=== PATIENT | male | born 1975 | race Caucasian/White ===

== ENCOUNTER 2017-01-08 10:19 | Emergency (ER) | payer SELFPAY ==
[~2017-01-08 10:19] MED LIST: Lactated Ringer's 1,000 ML BAG ONE; Nitroglycerin 0.4 MG TAB 1 EACH ONE
[2017-01-08] MEDS ORDERED: Nitroglycerin 0.4 MG TAB 1 EACH ONE ×2 (10:23→10:45)
[2017-01-08 10:47] LABS: #Basophils 0.1 thou/uL (0.0-0.2); #Eosinphils 0.2 thou/uL (0.0-0.7); #Lymphocytes 1.5 thou/uL (1.20-3.40); #Monocytes 0.6 thou/uL (0.11-0.59); #Neutrophils 11.1 thou/uL (1.40-6.50); %Basophils 0.6 % (0.0-1.0); %Eosinophils 1.3 % (0.0-10.0); %Monocytes 4.7 % (0.0-10.0); %Neutrophils 82.4 % (42.0-75.0); Hemoglobin 16.1 g/dL (14.0-18.0); Mean Corpuscular Hemoglobin 30.4 pg (27.0-31.0); Mean Corpuscular Volume 94.9 fl (80.0-94.0); Platelet Count 307 thou/uL (130-400); RBC Distribution Width 12.2 % (11.5-14.5); Red Blood Cell (RBC) Count 5.29 mill/uL (4.70-6.10); White Blood Cell (WBC) Count 13.4 thou/uL (4.8-10.8)
[2017-01-08 11:00] LABS: PTT 26.4 SEC (22.9-36.1); Prothrombin Time 13.2 SEC (12.0-14.7)
[2017-01-08 11:08] LABS: ALT (SGPT) 97 U/L (8-55); AST (SGOT) 39 U/L (5-34); Alkaline Phosphatase 64 U/L (40-150); Anion Gap 14 mmol/L (10-20); BUN (Urea Nitrogen) 16 mg/dL (8.9-20.6); Bilirubin, Total 0.9 mg/dL (0.2-1.2); Calc. Creatinine Clearance 0 mL/min (70-130); Carbon Dioxide 23 mmol/L (22-29); Chloride 103 mmol/L (98-107); Estimated GFR-MDRD 79; Globulin 3.7 g/dL (2.4-3.5); Glucose 116 mg/dL (70-105); Potassium 4.3 mmol/L (3.5-5.1); Protein, Total 7.7 g/dL (6.0-8.3); Sodium 136 mmol/L (136-145)
[2017-01-08 11:11] LABS: CKMB 3.6 ng/mL (0-6.6); Troponin I 0.017 ng/mL (< 0.028)
[2017-01-08 11:20] LABS: D-Dimer Test Less than 0.27 *mcg/mL (0.27-0.43)
--- NOTE | 2017-01-08 11:54 | RAD ---
PA AND LATERAL VIEWS OF CHEST: Date: 01/08/17 HISTORY: Chest pain. FINDINGS: Comparison made with exam of 03/30/14. The heart size is normal. The lungs are well expanded without focal areas of consolidation, pneumoth orax, or pleural effusions. IMPRESSION: No radiographic evidence of acute cardiopulmonary process. POS: [facility]
[2017-01-08 14:09] LABS: CKMB 3.1 ng/mL (0-6.6); Troponin I 0.015 ng/mL (< 0.028)
== END 2017-01-08 14:27 | disposition home or self-care (01) ==
LOC: MADERS 10:19
DX: R09.1 Pleurisy (principal); M62.838 Other muscle spasm; F32.9 Major depressive disorder, single episode, unspecified
CPT/HCPCS: 71020; 80053; 82553; 83880; 84484; 85025; 85379; 85610; 85730; 93005; 96360; J7120

== ENCOUNTER 2017-06-20 10:55 | Emergency (ER) | payer SELFPAY | END 2017-06-20 11:50 | disposition home or self-care (01) | LOC: MADERS 10:55 | DX: J11.1 Influenza due to unidentified influenza virus with other respiratory manifestations (principal); F32.9 Major depressive disorder, single episode, unspecified | CPT/HCPCS: 99283 ==

== ENCOUNTER 2018-03-28 18:22 | Emergency (ER) | payer SELFPAY ==
[2018-03-28] MEDS ORDERED: Ibuprofen 800 MG TAB ONE (19:29)
--- NOTE | 2018-03-28 19:46 | RAD ---
PA AND LATERAL VIEWS MOOK: HISTORY: Cough. COMPARISON: 01/08/2017 FINDINGS: The heart size is normal. The lungs are well expanded without focal areas of consolidation, pneumoth orax, or pleural effusions. No acute osseous abnormalities are seen. IMPRESSION: No radiographic evidence of acute cardiopulmonary process. POS: [facility]
== END 2018-03-28 21:00 | disposition home or self-care (01) ==
LOC: MADERS 18:22
DX: J20.9 Acute bronchitis, unspecified (principal); F32.9 Major depressive disorder, single episode, unspecified
CPT/HCPCS: 71046; 87804; J7620

== ENCOUNTER 2018-04-12 18:22 | Emergency (ER) | payer SELFPAY ==
[2018-04-12] MEDS ORDERED: predniSONE 20 MG TAB ONE (19:42)
--- NOTE | 2018-04-12 20:04 | RAD ---
PA AND LATERAL CHEST X-RAY: 04/12/18 HISTORY: Cough. COMPARISON: 03/28/18. FINDINGS: The cardiac silhouette and pulmonary vasculature are within normal limits. The lungs are clear. There has been no interval change from prior exam. IMPRESSION: No acute cardiopulmonary process. POS: [facility]
== END 2018-04-12 19:45 | disposition home or self-care (01) ==
LOC: MADERS 18:22
DX: J20.9 Acute bronchitis, unspecified (principal); H66.91 Otitis media, unspecified, right ear; F32.9 Major depressive disorder, single episode, unspecified
CPT/HCPCS: 71046; J7506

== ENCOUNTER 2018-10-02 19:09 | Emergency (ER) | payer SELFPAY ==
[~2018-10-02 19:09] MED LIST changes: +Iopamidol 370 76% 100 ML VIAL ONE; -Lactated Ringer's 1,000 ML BAG ONE; -Nitroglycerin 0.4 MG TAB 1 EACH ONE
[2018-10-02] MEDS ORDERED: Sodium Chloride 0.9% 1,000 ML ONE (19:45)
[2018-10-02 19:47] LABS: #Basophils 0.1 thou/uL (0.0-0.2); #Eosinphils 0.1 thou/uL (0.0-0.7); #Lymphocytes 2.2 thou/uL (1.20-3.40); #Monocytes 0.6 thou/uL (0.11-0.59); #Neutrophils 4.6 thou/uL (1.40-6.50); %Basophils 1.2 % (0.0-1.0); %Eosinophils 1.7 % (0.0-10.0); %Lymphocytes 28.9 % (21.0-51.0); %Neutrophils 60.2 % (42.0-75.0); Hemoglobin 15.3 g/dL (14.0-18.0); Mean Corpuscular HGB CONC 31.8 g/dL (32.0-36.0); Mean Corpuscular Hemoglobin 29.4 pg (27.0-31.0); Mean Corpuscular Volume 92.5 fL (78.0-98.0); Mean Platelet Volume 6.5 fL (7.4-10.4); Platelet Count 271 thou/uL (130-400); Red Blood Cell (RBC) Count 5.22 mill/uL (4.70-6.10); White Blood Cell (WBC) Count 7.7 thou/uL (4.8-10.8)
[2018-10-02 19:55] LABS: INR-International Normal Ratio 0.9; PTT 26.4 SEC (22.9-36.1); Prothrombin Time 12.7 SEC (12.0-14.7)
--- NOTE | 2018-10-02 19:57 | CT ---
CT abdomen and pelvis with IV contrast HISTORY: Abdominal pain. COMPARISON: 10/04/2009. FINDINGS: Lung bases are clear. The liver, spleen, kidneys, adrenal glands, and pancreas have a kaleb l CT appearance. No free air or free fluid. Urinary bladder is incompletely distended. Lack of oral contrast limits evaluation of the bowel. No evidence of obstruction. Appendix is not inf lamed. IMPRESSION: No significant abnormalities are demonstrated.
[2018-10-02 20:05] LABS: ALT (SGPT) 55 U/L (8-55); AST (SGOT) 22 U/L (5-34); Alkaline Phosphatase 74 U/L (40-150); Anion Gap 14 mmol/L (10-20); BUN (Urea Nitrogen) 10 mg/dL (8.9-20.6); Bilirubin, Total 0.5 mg/dL (0.2-1.2); Calc. Creatinine Clearance 0 mL/min (70-130); Carbon Dioxide 26 mmol/L (22-29); Chloride 103 mmol/L (98-107); Estimated GFR-MDRD 84; Globulin 3.3 g/dL (2.4-3.5); Glucose 100 mg/dL (70-105); Lipase 26 U/L (8-78); Potassium 3.7 mmol/L (3.5-5.1); Protein, Total 7.3 g/dL (6.0-8.3); Sodium 139 mmol/L (136-145)
== END 2018-10-02 20:25 | disposition home or self-care (01) ==
LOC: MADERS 19:09
DX: R10.33 Periumbilical pain (principal); F32.9 Major depressive disorder, single episode, unspecified
CPT/HCPCS: 74177; 80053; 83690; 85025; 85610; 85730; J7050; Q9967

== ENCOUNTER 2018-10-09 20:14 | Emergency (ER) | payer SELFPAY ==
--- NOTE | 2018-10-09 20:58 | RAD ---
TWO VIEWS RIGHT HUMERUS 10/09/18 HISTORY: Right humeral pain. Two views right humerus demonstrates no evidence of right humeral fractures, subluxations or bone les ions. IMPRESSION: Normal two views right humerus. POS: [facility]
== END 2018-10-09 21:01 | disposition home or self-care (01) ==
LOC: MADERS 20:14
DX: S40.021A Contusion of right upper arm, initial encounter (principal); F32.9 Major depressive disorder, single episode, unspecified; X58.XXXA Exposure to other specified factors, initial encounter

== ENCOUNTER 2019-10-09 19:16 | Emergency (ER) | payer SELFPAY | END 2019-10-09 20:26 | disposition home or self-care (01) | LOC: MADERS 19:16 | DX: J06.9 Acute upper respiratory infection, unspecified (principal); J00 Acute nasopharyngitis [common cold]; F32.9 Major depressive disorder, single episode, unspecified | CPT/HCPCS: 99282 ==

== ENCOUNTER 2019-10-15 17:19 | Emergency (ER) | payer MEDICARE, OTHER ==
--- NOTE | 2019-10-15 18:23 | RAD ---
Exam: Chest one view HISTORY:Chest pain. Cough Comparison: 03/30/2014 FINDINGS: Cardiac silhouette: Normal Aorta: Unremarkable Pulmonary vessels: Normal Costophrenic angles: Clear LUNGS: No masses or consolidation. Pneumothorax: None Osseous abnormalities: None IMPRESSION: No acute cardiopulmonary process.
[2019-10-15] MEDS ORDERED: Azithromycin 250 MG TAB ONE (19:04)
[2019-10-16 17:54] LABS: SARS-CoV-2 MS2 Positive; SARS-CoV-2 N Gene Negative; SARS-CoV-2 S Gene Negative; SARS-CoV-2 orf1ab Negative
== END 2019-10-15 19:05 | disposition home or self-care (01) ==
LOC: MADERS 17:19
DX: J02.9 Acute pharyngitis, unspecified (principal); F32.9 Major depressive disorder, single episode, unspecified; Z20.828 Contact with and (suspected) exposure to other viral communicable diseases
CPT/HCPCS: 71045; 87081; 87430; 87635; 87804; 94760; U0002

== ENCOUNTER 2021-04-01 19:52 | Emergency (ER) | payer SELFPAY | END 2021-04-01 20:54 | disposition home or self-care (01) | LOC: MADERS 19:52 | DX: S80.02XA Contusion of left knee, initial encounter (principal); E11.9 Type 2 diabetes mellitus without complications; E78.5 Hyperlipidemia, unspecified; I10 Essential (primary) hypertension; Z79.84 Long term (current) use of oral hypoglycemic drugs; Z79.899 Other long term (current) drug therapy; X50.1XXA Overexertion from prolonged static or awkward postures, initial encounter ==

== ENCOUNTER 2022-07-30 19:41 | Emergency (ER) | payer OTHER, SELFPAY | END 2022-07-30 21:01 | disposition home or self-care (01) | LOC: MADERS 19:41 | DX: S46.812A Strain of other muscles, fascia and tendons at shoulder and upper arm level, left arm, initial encounter (principal); S20.212A Contusion of left front wall of thorax, initial encounter; I10 Essential (primary) hypertension; E11.9 Type 2 diabetes mellitus without complications; E78.00 Pure hypercholesterolemia, unspecified; V86.69XA Passenger of other special all-terrain or other off-road motor vehicle injured in nontraffic accident, initial encounter; Z79.84 Long term (current) use of oral hypoglycemic drugs; Z79.899 Other long term (current) drug therapy ==

== ENCOUNTER 2025-03-17 17:24 | Emergency (ER) | payer SELFPAY | END 2025-03-17 18:48 | disposition home or self-care (01) | LOC: MADERS 17:24 | DX: M77.8 Other enthesopathies, not elsewhere classified (principal); E11.9 Type 2 diabetes mellitus without complications; E78.5 Hyperlipidemia, unspecified; I10 Essential (primary) hypertension; Z79.899 Other long term (current) drug therapy | CPT/HCPCS: 99283 ==